=== PATIENT | female | born 1995 | race Caucasian/White ===

== ENCOUNTER 2020-01-25 03:04 | Emergency (ER) | payer MEDICAID, OTHER ==
--- NOTE | 2020-01-25 03:05 | NUR ---
Pt checked in complaining of shortness of breath. Pt brought back to room and while getting vital signs pt decides she wants to leave. Pt 100% on room air with a pulse of 155. Pt said she wanted to leave and this RN explained that pt should be seen by the physician if she is having a hard time breathing but pt refused.
== END 2020-01-25 03:21 | disposition left against medical advice (07) ==
LOC: ER FS 03:08
DX: R06.9 Unspecified abnormalities of breathing (principal)